=== PATIENT | male | born 1980 | race Caucasian/White ===

== ENCOUNTER 2021-04-14 20:58 | Emergency (ER) | payer BC ==
[2021-04-14 23:02] LABS: HEMOGLOBIN 14.8 gm/dl (14.0-17.5); RED BLOOD COUNT 4.92 M/UL (4.20-5.50)
[2021-04-14 23:25] LABS: BUN/CREATININE RATIO 15 (0-10)
== END 2021-04-15 01:46 | disposition home or self-care (01) ==
LOC: ER1 20:58
PROVIDERS: Physician Assistant
DX: R11.2 Nausea with vomiting, unspecified (principal); Z88.0 Allergy status to penicillin; Z88.2 Allergy status to sulfonamides; Z88.6 Allergy status to analgesic agent
CPT/HCPCS: 80053; 81001; 83690; 85025; 99284

== ENCOUNTER → 2021-06-02 | Outpatient (CLI) | payer BC | LOC: KOH-I 10:52 | DX: M54.50 Low back pain, unspecified (principal) | CPT/HCPCS: 72100 ==